=== PATIENT | male | born 1965 | race Caucasian/White ===

== ENCOUNTER 2016-02-20 11:35 | Day surgery (SDC) | payer BC ==
[2016-02-20] MEDS ORDERED: IV START KIT ONE (11:39)
[2016-02-20] MEDS ORDERED: LACTATED RINGERS 1,000 ML ONE (11:39)
[2016-02-20] MEDS ORDERED: FENTANYL 5 ML ONE (11:53)
[2016-02-20] MEDS ORDERED: MIDAZOLAM HCL 5 MG/5 ML VIAL ONE (11:53)
[2016-02-20] MEDS ORDERED: MIDAZOLAM HCL 5 MG/5 ML VIAL IV PRN (12:02)
[2016-02-20] MEDS ORDERED: FENTANYL 250 MCG/5 ML AMP IV PRN (12:02)
[2016-02-20] MEDS ORDERED: LACTATED RINGERS 1,000 ML IV SCH (12:15)
--- NOTE | 2016-02-22 12:05 | SURGPATH ---
[facility] [address] [place] [id number] Patient Name: VANDANA DAVIS MR#: [id number] : 1965 Gender: M Specimen #: [id number] Collected: 02/20/2016 Received: 02/21/2016 Reported: 02/22/2016 Submitting Phys: KAREN MADISON Copy To Phys: [facility] Clinical History / Pre-Operative Diagnosis: SURVEILLANCE Specimen Source / Surgical Procedure Performed: SIGMOID POLYP AT 20 CM Interpretation: SIGMOID COLON POLYP, BIOPSY: - HYPERPLASTIC POLYP Electronically Signed Out Mario Fernandez M.D. Gross Description: The specimen is received in a formalin filled container labeled with the patient's name and "sigmoid polyp at 20 cm". A single suggs biopsy is 0.3 cm. Totally embedded in one cassette. Can Cummings Microscopic Description: Microscopic performed. 1: 85471 D12.6
== END 2016-02-20 13:00 | disposition home or self-care (01) ==
LOC: SDC 11:35
PROVIDERS: ATTEND Family Medicine
PROC: 0DBE8ZX Excision of Large Intestine, Via Natural or Artificial Opening Endoscopic, Diagnostic (ICD-10-PCS; principal; 2016-02-20)
DX: Z12.11 Encounter for screening for malignant neoplasm of colon (principal); D12.6 Benign neoplasm of colon, unspecified; I78.1 Nevus, non-neoplastic; L82.1 Other seborrheic keratosis